=== PATIENT | female | born 1985 | race Caucasian/White ===

== ENCOUNTER 2024-02-09 05:28 | Inpatient (IN) ==
--- NOTE | 2024-02-01 15:13 | Anesthesiology Consultation ---
Date of Service February 01, 2024 Assessment & Plan (1) Encounter for pre-operative examination: - Per solar site assessment specialist on 02/01/24: No known infectious disease contacts, current infectious disease symptoms in past 10 days or COVID positive test result in the past 30 days. Chart Review Chart Review: entry clerk initiated History Surgery Operation Date: 02/09/24 07:30 Proposed Procedures p Repeat Section - Mary Quevedo MD Height/Weight Height: 5 ft 2.25 in Weight: 62.142 kg Allergies Allergy/AdvReac Type Severity Reaction Status Date / Time bisacodyl Allergy Severe Hives Verified 02/01/24 14:18 [From Dulcolax (bisacodyl)] amoxicillin Allergy Intermediate Hives Verified 02/01/24 14:18 latex Allergy Mild Rash Verified 02/01/24 14:18 Medications Home Medications Medication Instructions Recorded Confirmed Last Taken cetirizine 10 mg tablet (Zyrtec) 10 mg PO HS 11/30/20 02/01/24 10/23/22 montelukast 10 mg tablet 10 mg PO HS 11/30/20 02/01/24 08/06/22 (Singulair) prenat.vits,brian,jpx-lqsi-hmpjx 1 tab PO HS 12/04/20 02/01/24 10/23/22 Past Medical History Medical History Anxiety Depression Hx of ectopic 07/2021- hx methotrexate Nausea and vomiting after administration of anesthetic agent pt states with 1st she was sick with nausea/vomiting and shakes for days after procedure Past Family History Family History Other Crohn's disease No family history of adverse response to anesthesia Past Surgical History Surgical History History of arthroscopy right knee x2 History of cervical cerclage History of colonoscopy History of colposcopy x3 History of D&C History of tonsillectomy Previous section Social History Smoking Status: Never smoker Do You Dip or Chew Tobacco: No Hx Alcohol Use: No Hx Substance Use: No substance use type: does not use Testing Laboratory Results 01/28/24 WBC: 9.1 H/H: PLATELETS: 178,000
[2024-02-09] MEDS: LACTATED RINGER'S 1,000 ML IV SCH ×3 (05:47→11:38)
--- OUTSIDE RECORDS SUMMARY | 2024-02-09 05:48 | External Medical Summary | Summary of Care ---
Author Name Unknown Organization [facility] Address [address] [facility] [place] [address] Phone [phone] Care Team Providers Care Dedicated Regional Driver Name Role Phone Unavailable Primary Care Provider Unavailabl e Reason for Visit * Reason Comments Return Visit Encounter Details Date Type Department Care Team (Late st Contact Info) Description 02/05/2024 1:30 PM EDT Office Visit Gynecology/Obstetric s [facility] [address] [place] [id number] Jenny Giraldo CRNP [address] [place] [id number] [place], Non Stress Tests [facility] [address] [place] [id number] High-risk in third trimester*; Asthma affecting in third trimester; History of delivery; Previous delivery affecting ; Multigravida of advanced maternal age in third trimester; Antepartum anemia complicating ; Positive GBS test Allergies Active Allergy Reactions Criticality Noted Date Comments Amoxicillin 2002 hives Doxycycline Hyclate 08/22/2008 Sever vomiting Bisacodyl Chills/rigors,Hives High 08/04/2019 08/03/2019-patient took Dulcolax (4 tablets) for Colonoscopy prep-had allergic reaction (hives, body felt hot, chills) documented as of this encounter (statuses as of 02/05/2024) Medications Medication Sig Dispensed Refills Start Date End Date Status Albuterol Sulfate (VENTOLIN HFA) 108 (90 Base) MCG/ACT AERSIndications:Vir al URI Inhale 2 Puffs by mouth every 4 hours as needed for Cough or Wheezing. 1 Inhaler 08/26/2019 Active Additional Information Patient not taking.Reported on 10/24/2022 Montelukast Sodium 10 MG Oral Tablet (Singulair)Indicati ons:Allergic rhinitis, unspecified seasonality, unspecified trigger Take 1 Tablet by mouth in the morning. 90 Tablet 1 10/06/2023 Active Plus Vitamin/Mineral 27-1 MG Oral Tablet Take 1 Tablet by mouth daily. 12/04/2020 Active documented as of this encounter (statuses as of 02/05/2024) Active Problems Problem Noted Date Diagnosed Date Positive GBS test 01/28/2024 High-risk 12/14/2023 Antepartum anemia complicating 024 Previous delivery affecting 0 12/11/2023 AMA (advanced maternal age) multigravida 35+ 01/2024 Overview: Low risk Qnatal History of delivery 10/08/2023 Last Assessment & Plan: I reviewed the ultrasound with her. The anatomy that was visualized appears unremarkable and the biometry is appropriate for the gestational age. The amniotic fluid volume is subjectively normal. A transvaginal ultrasound was performed to measure the cervical length. The cervical length range from 3.9 cm to 2.4 cm and there was funneling present. The patient states that she had ruptured membranes at 34 weeks and delivered at 34 weeks 1 day gestation. We discussed her options with a cervical length of 2.4 cm including vaginal progesterone and a cervical cerclage. We discussed the risks and benefits of both these procedures. The patient voiced understanding to the above conversation all of her questions were answered to her satisfaction. At this point, the patient would like to proceed with a cerclage. We will attempt to do the cerclage tomorrow morning. Asthma affecting in third trimester Encounter for surveillance of abnormal nevi 04/06 Overview: Mildly atypical nevus (R upper back) Eczema 05/10/2013 Depression 05/10/2013 Generalized anxiety disorder 05/10/2013 Estimated Date of Delivery Comme nts Yes 02/16/2024 Based on last me nstrual period of 05/12/2023 documented as of this encounter (statuses as of 02/05/2024) Resolved Problems Problem Noted Date Diagnosed Date Resolved Date Cervical cerclage suture present 12/11/2023 01/28/2024 Primigravida of advanced mat ernal age in second trimester 10/08/2023 12/11/2023 distress affecting delivery 10/26/2022 12/11/2023 delivery delivered 10/26/2022 12/11/2023 PROM with onset of l abor within 24 hours of rupture 10/24/2022 12/11/2023 Viral URI with cough 11/28/2016 018 Allergic bronchitis 11/28/2016 07/28/19 18 Allergic rhinitis 11/28/2016 10/24/2022 Abdominal pain 09/23/2009 07/28/2017 TOOTH ERUPTION DISTURB 05/07/200409/23 Joint pain, knee 05/01/2004 09/23/2009 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 09/23/2009 documented as of this encounter (statuses as of 02/05/2024) Immunizations Name Administration Dates Next Due DTWP - Dipth/Tet/Whole Cell Pertussis 02/05/1989,09/16/1988,07/28/1988, 988 HIB PRP-T, 4 Dose, PF, IM (H iberix, ActHib) 02/05/1989 Hepatitis B, 0-19 yrs 04/08/1999,10/27/1998,09/04 MMR - Measles/Mumps/Rubella Vaccine 09/23/1998,0 11/07/1988 OPV - Polio Virus Vaccine (Oral) 02/05/1989,07/07,1987 PPD 04/21/2006 TB Ricarda Test 04/08/1999,03/06/1994 documented as of this encounter Social History Tobacco Use Types Packs/Day Years Used Date Smoking Tobacco: Never Smokeless Tobacco: Never Comments:not a lot, maybe 1. 5 yrs Alcohol Use Standard Drinks/Week Comments Not Currently 0 (1 standard drink = 0.6 oz pur e alcohol) Occasional PHQ-2 Answer Date Recorded PHQ-2 Score -1 03/26/2020 Hunger Vital Sign Answer Date Recorded Within the past 12 months, y ou worried that your food would run out before you got the money to buy more. Never true 12/17/19 23 Within the past 12 months, t he food you bought just didn't last and you didn't have money to get more. Never true 12/16/2022 [place] Depression Scale Answer Date Recorded [place] Depression Scale Total 10 11/11/2022 The thought of harming myself has occurred to me . Never 11/11/2022 Utilities Answer Date Recorded Do you have trouble paying y our heating, water, or electric bill? (Adult - for ages 18 years and over) Not on file 12/22/2023 Is your family able to pay t he heat, water, or electric bill? (Household - for ages 0-17 years) Not on file 12/22/2023 Does your family have access to good internet? (Household - for ages 0-17 years) Not on file 12/22/2023 Social Connections Answer Date Recorded How often do you feel lonely or isolated from those around you? (Adult - for ages 18 years and over) Not on file 12/22/2023 Estimated Date of Delivery Comme nts Yes 02/16/2024 Based on last me nstrual period of 05/12/2023 Sex and Gender Information Value Date Recorded Sex Assigned at Female 10/18/2018 8:34 AM EDT Gender Identity Female 10/18/2018 8:34 AM EDT Sexual Orientation Straight 10/18/2018 8: 34 AM EDT Job Start Date Occupation Industry Not on file Not on file Not on file documented as of this encounter Last Filed Vital Signs Vital Sign Reading Time Taken Comments Blood Pressure 116/68 02/05/2024 1:28 PM EDT Pulse - - Temperature - - Respiratory Rate - - Oxygen Saturation - - Inhaled Oxygen Concentration - - Weight 63 kg (139 lb) 02/05/2024 1:28 PM EDT Height 154.9 cm (5' 1") 02/05/2024 1:28 PM EDT Body Mass Index 26.26 02/05/2024 1:28 PM EDT documented in this encounter Functional Status Functional Status Response Date of Assess ment Are you deaf or do you have serious difficulty h earing? No 10/24/2022 Are you blind or do you have serious difficulty seeing, even when wearing glasses? No 10/24/2022 Do you have serious difficul ty walking or climbing stairs? (5 years old or older) No 10/24/2022 Do you have difficulty dress ing or bathing? (5 years old or older) No 10/24/2022 Because of a physical, menta l, or emotional condition, do you have difficulty doing errands alone such as visiting a doctor s office or shopping? (15 years old or older) No 10/25/19 Cognitive Status Response Date of Assessm ent Because of a physical, menta l, or emotional condition, do you have serious difficulty concentrating, remembering, or making decisions? (5 years old or older) No 10/24/2022 documented as of this encounter Progress Notes * Jenny Giraldo CRNP - 02/05/2024 1:27 PM EDT Here for NST only. tachycardia noted on NST yesterday; was later evaluated on L&D, and advised to repeat NSTtoday. ASSESSMENT assessment with Non-stress Test completed on 02/05/2024 at 38.3 weeks gestation for indication of prior tachycardia heart baseline: 130-140 bpm Variability: Moderate Decelerations: absent Accelerations: present Contractions: Present x1 NST start time: 1323 NST stop time: 1345 NST strip reviewed, interpreted, and approved by OB provider, KATIE Mckeon . NST strip stored in clinic storage file documented in this encounter Plan of Treatment Health Maintenance Due Date Last Done Comments Pneumococcal Vaccine: Pediatrics (0 to 5 Years) and At-Risk Patients (6 to 64 Years) (1 of 2 - PCV) 1993 DTaP,Tdap,and Td Vaccines (5 - Tdap) 1998 02/05/1989, 09/16/1988, 07/28/1988, Additional history exists HPV/Co-Test 2017 Depression Monitoring 06/13/2020 06/13/2019 Cervical Cancer Screening 09/18/2020 Pap Smear 09/18/2020 09/18/2017, 08/07, 08/27/2016, Additional history exists Diabetes Screening 06/13/2022 06/13/2019, 0 09/21/2009, 03/19/2007, Additional history exists *SPIROMETRY ONCE FOR ASTHMA-ADULT 10/30/2022 COVID-19 Vaccine ( season) 2023 HPV (Gardasil) Vaccine Aged Out No lo nger eligible based on patient's age to complete this topic MENINGOCOCCAL (MENACTRA/MENVEO) Aged Out No longer eligible based on patient's age to complete this topic documented as of this encounter Medical Devices Not on filedocumented as of this encounter Visit Diagnoses Diagnosis High-risk in third trimester- Primary Asthma affecting in third trimester History of delivery Previous delivery affecting Previous delivery, unspecified as to episode of care or not applicable Multigravida of advanced maternal age in third trimester Antepartum anemia complicating Anemia, antepartum Positive GBS test documented in this encounter Advance Directives * Full Code (Latest Code Status on File) Date Activated Date Inactivated Comments 10/09/2023 9:48 AM 10/09/2023 7:00 PM This order ref lects the patients wishes and were consensually agreed upon. Question Answer Comments Discussion of Advance Directives occurred with: Patient * Full Code Date Activated Date Inactivated Comments 10/24/2022 6:55 AM 10/27/2022 11:22 PM This order reflects the patients wishes and were consensually agreed upon. Question Answer Comments Discussion of Advance Directives occurred with: Patient
--- OUTSIDE RECORDS SUMMARY | 2024-02-09 05:48 | External Medical Summary | Summary of Care ---
Author Name Unknown Organization [facility] Address [address] [facility] [place] [address] Phone [phone] Care Team Providers Care Gear Lapper Name Role Phone Unavailable Primary Care Provider Unavailabl e Reason for Visit * Reason Onset Date Comments Appointment 02/04/2024 Encounter Details Date Type Department Care Team (Late st Contact Info) Description 02/04/2024 Telephone Gynecology/Obstetrics [facility] [address] [place] [id number] Mary Dawkins MD [address] [place] [phone] Appointment Allergies Active Allergy Reactions Criticality Noted Date [...] cough 11/28/2016 018 Allergic bronchitis 11/28/2016 07/28/19 Allergic rhinitis 11/28/2016 10/24/2022 Abdominal pain 09/23/2009 [...] money to buy more. Never true 12/17/19 Within the past 12 months, t he food you bought just didn't last and you didn't have money to get more. Never true 12/16/2022 [place] Depression Scale Answer Date Recorded [place] Depression Scale Total 10 11/11/2022 The thought [...] on file documented as of this encounter Functional Status Functional Status Response [...] No 10/24/2022 documented as of this encounter Miscellaneous Notes * Telephone Encounter - Tamera Bragg OSA - 02/05/2024 7:40 AM EDT LM on pt VM. She is scheduled for today at 130 for a NST. * Telephone Encounter - Mary Dawkins MD - 02/04/2024 6:58 PM EDT Patient is seen in L&D today. Reactive NST after an episode of prolonged acceleration Recommend f/u NST tomorrow on 02/04 at office Please help to arrange NST for her. Thank you documented in this encounter Plan of Treatment Upcoming Encounters Date Type Department Care Team (Late st Contact Info) Description 02/05/2024 1:30 PM EDT Office Visit Gynecology/Obstetrics [facility] [address] [place] [address] Jenny Giraldo CRNP [address] [place] [address] [place] Non Stress Tests [facility] [address] [place] [address] Health Maintenance Due Date Last Done Comments [...] Not on filedocumented as of this encounter Advance Directives * Full Code [...]
--- OUTSIDE RECORDS SUMMARY | 2024-02-09 05:48 | External Medical Summary | Summary of Care ---
Author Name Unknown Organization [facility] Address [address] [facility] [place] [address] Phone [phone] Care Team Providers Care Exchange Administrator Name Role Phone Unavailable Primary Care Provider Unavailabl e Reason for Visit * Reason Comments Return Visit Encounter Details Date Type Department Care Team (Late st Contact Info) Description 02/04/2024 4:30 PM EDT Office Visit Gynecology/Obstetric s [facility] [address] [place] [phone] Suze Maurice PA-C [address] [place] [address] Multigravida of advanced maternal age in third trimester*; Asthma affecting in third trimester; History of delivery; Previous delivery affecting ; High-risk in third trimester; Antepartum anemia complicating Allergies Active Allergy Reactions Criticality Noted Date [...] money to get more. Never true 12/16/2022 [place] Depression Scale Answer Date Recorded [place] Depression Scale Total 10 11/11/2022 The thought [...] Sign Reading Time Taken Comments Blood Pressure 108/64 02/04/2024 4:29 PM EDT Pulse - - Temperature - - Respiratory Rate - - Oxygen Saturation - - Inhaled Oxygen Concentration - - Weight 62.6 kg (138 lb) 02/04/2024 4:29 PM EDT Height - - Body Mass Index 26.07 01/28/2024 9:46 AM EDT documented in this encounter Functional Status [...] (15 years old or older) No 10/25/19 23 Cognitive Status Response Date of Assessm ent Because of a physical, menta l, or emotional condition, do you have serious difficulty concentrating, remembering, or making decisions? (5 years old or older) No 10/24/2022 documented as of this encounter Progress Notes * Suze Maurice PA-C - 02/04/2024 5:16 PM EDT 38w2d Doing well, no complaints. Repeat C/S scheduled 02/09/2024. Denies LOF, VB. Baby is active. Having ctx without regularity. Declines cervical check. Baby tachy w/ doppler 170's. NST in follow up. ASSESSMENT assessment with Non-stress Test completed on 02/04/2024 at 38.2 weeks gestation for indication of concern for tachycardia heart baseline: 150 bpm, change in baseline to 155 bpm around 17:04 Variability: Moderate Decelerations: present, Variable x 1 Accelerations: present Contractions: None NST start time: 16:07 NST stop time: 17:14 NST strip reviewed, interpreted, and approved by OB provider, Suze Maurice PA-C. NST strip stored in clinic storage file weight caller provider Dr. Werner notified. NST reviewed. No BPP available given time of day unfortunately. She was agreeable for patient to present to L&D directly. Patient agreeable to present directly to L&D. L&D notified of patient's arrival. * Jeimy Nicholas LPN - 02/04/2024 4:29 PM EDT Pt is currently 38w2d with an Estimated Date of Delivery: 02/16/24 - documented in this encounter Plan of Treatment Upcoming Encounters Date Type Department Care Team (Late st Contact Info) Description 02/05/2024 1:30 PM EDT Office Visit Gynecology/Obstetrics [facility] [address] [place] [phone] Jenny Giraldo CRNP [address] [place] [address] [place], Non Stress Tests [facility] [address] [place] [id number] Health Maintenance Due Date Last Done Comments [...] as of this encounter Visit Diagnoses Diagnosis Multigravida of advanced maternal age in third trimester- Primary Asthma affecting in third trimester History of delivery Previous delivery affecting Previous delivery, unspecified as to episode of care or not applicable High-risk in third trimester Antepartum anemia complicating Anemia, antepartum documented in this encounter Advance Directives * [...]
[2024-02-09] MEDS: ACETAMINOPHEN 500 MG TAB PO SCH (06:04)
[2024-02-09 06:31] LABS: Hematocrit (blood only) 32.1 % (37.0-47.0); Hemoglobin 10.6 g/dl (12.0-16.0); Mean Corpuscular Volume 90.9 fL (80.0-100.0); Mean Platelet Volume 11.3 fL (9.4-12.4); Platelet Count 154 K/uL (130-400); RDW Coefficient of Variation 13.7 % (11.5-14.5); RDW Standard Deviation 44.9 fL (36.4-46.3); Red Blood Count 3.53 M/uL (4.20-5.40); White Blood Count 7.12 K/ul (4.8-10.8)
[2024-02-09] MEDS ORDERED: DEXAMETHASONE SOD INJ 4 MG/ML VIAL ONE (06:46)
[2024-02-09] MEDS ORDERED: ePHEDrine sulfate 50 MG/5 ML SYR ONE (06:46)
[2024-02-09] MEDS ORDERED: PHENYLEPHRINE 100MCG/ML 10ML SYR IV ONE (06:46)
[2024-02-09] MEDS ORDERED: ONDANSETRON INJ 2 MG/ML 2 ML VIAL ONE (06:46)
[2024-02-09] MEDS ORDERED: MoRPHine SULFATE PF 1 MG/ML 10 ML AMP/VIAL ONE (06:47)
[2024-02-09] MEDS ORDERED: fentaNYL citrate PF 100 MCG/2 ML VIAL ONE (06:47)
[2024-02-09] MEDS ORDERED: KETOROLAC 30 MG/ML VIAL ONE (06:48)
[2024-02-09] MEDS ORDERED: OXYTOCIN 10 UNITS/ML VIAL ONE (06:48)
[2024-02-09] MEDS: CITRIC ACID/SODIUM CITRATE 15 ML UDC PO SCH (07:22)
--- NOTE | 2024-02-09 07:24 | History & Physical Bridge Note ---
Date of Service February 09, 2024 History & Physical Bridge Note I have examined the patient, reviewed the History & Physical and in the interval since the performance of the History & Physical I have noted the following changes of clinical significance: no changes noted
[2024-02-09] MEDS ORDERED: diphenhydrAMINE Capsule 25 MG CAP PO PRN (07:25)
[2024-02-09] MEDS ORDERED: PROMETHAZINE HCL 12.5 MG in SODIUM CHLORIDE 0.9% 50 ML IV PRN (07:25)
[2024-02-09] MEDS ORDERED: HYDROCORTISONE ACETATE 25 MG SUPP PR PRN (07:25)
[2024-02-09] MEDS ORDERED: CALCIUM CARBONATE 500 MG CHEWABLE TAB PO PRN (07:25)
[2024-02-09] MEDS ORDERED: diphenhydrAMINE 50 MG/ML VIAL IV PRN ×2 (07:25→08:01)
[2024-02-09] MEDS ORDERED: BENZOCAINE 20% SPRY 85 APPLN/85 GM CAN EXT PRN (07:25)
[2024-02-09] MEDS ORDERED: SENNA 8.6 MG TAB PO PRN (07:25)
[2024-02-09] MEDS ORDERED: ONDANSETRON INJ 2 MG/ML 2 ML VIAL IV PRN ×2 (07:25→08:01)
[2024-02-09] MEDS ORDERED: MAGNESIUM HYDROXIDE SUSP 30 ML UDC PO PRN (07:25)
[2024-02-09] MEDS ORDERED: HYDROmorphone INJ 0.5 MG/0.5 ML SYR IV PRN ×2 (07:25→08:01)
[2024-02-09] MEDS: ceFAZolin 2000MG 2,000 MG/15 ML SYR IV SCH (07:33)
--- NOTE | 2024-02-09 07:45 | Operative Report ---
Post Operative Report Pre & Post Diagnosis Operation Date: 02/09/24 07:30 <No data on this case meets the specified criteria> I identified the patient and participated in the time-out.: Yes Procedure Operation Date: 02/09/24 07:30 Repeat Low Transverse Ceserean Section Surgeon Mary Quevedo MD Four H Agent Dr Son Quantitative Blood Loss (QBL) 908 ml Findings Consistent with Post-Op Diagnosis Baby was a viable male infant, delivered in cephalic direct occiput posterior position at 08:02 am, Apgars 9/9. Maternal findings: There was silent uterine rupture of about 7-8 cm area where the old incision was, it was covered with peritoneum only, amniotic bag was intact and visible, no bleeding from uterine edges. Right had ectopic in the past which was treated with 2 doses of Methotrexate. It was a small spot on the middle of the right tube, otherwise normal uterus, fallopian tubes and ovaries noted. Specimens Placenta with cord Drains Odonnell catheter drained 100 ml of clear urine Complications none Disposition Accompanied Patient To Recovery: Yes Indications History of prior delivery Description of Procedure Patient was taken to operating room where a spinal anesthesia was given without difficulty. She was placed in dorsal supine position with a leftward tilt. She was prepared and draped in usual sterile fashion. A financial skin incision was made and carried through to the underlying layer of fascia with the Bovie. Fascia was incised in the midline and incision was extended laterally with the help of Zavala scissors. Then the upper aspect of the fascial incision was grasped with 2 Katlin clamps elevated the underlying rectus muscles were dissected off sharply with Zavala scissors. Same thing was done on the lower incision. The rectus muscles were already at the superior part, the rest of them were opened up gently. The peritoneum was already open at a small area close to the muscular defect, the remainder part was extended superiorly and inferiorly with good visualization of the bladder. The bladder blade was inserted. There was silent uterine rupture of about 7-8 cm area where the old incision was, it was covered with peritoneum only, amniotic bag was intact and visible, no bleeding from uterine edges. Vesicouterine peritoneum was identified and sweeped down from incision, bladder flap was created digitally and bladder blade was reinserted. The amniotic bag was incised ay one spot, incision was extended laterally, and clear fluid was obtained. Baby's face was seen indicating, direct occiput posterior position, head was delivered without difficulty, followed by shoulders and body with minimal traction without difficulty. Mouth and nose were suctioned there was dried on the field he was vigorously crying and moving. The cord was clamped times and cut at 1 minute delay and then the was handed off to the pediatric team. Then the placenta was delivered manually as intact and complete. Uterus was externalized and cleared of all clots and debris's. Uterine incision appeared to be normal with no active bleeding from edges, lower segment was thin but still had enough to tissue. It was repaired with 0 Vicryl in a running locked fashion, second umbricating layer was placed with the same suture in running locked fashion. Excellent hemostasis achieved. Cul-de-sac and the pelvis was irrigated with warm normal saline and suctioned. Incision was checked to be hemostatic again. Uterus was returned to the abdomen, parietal peritoneum was reapproximated with 3-0 Vicryl in a running fashion and the muscles were reapproximated with 2-0 Vicryl in a running fashion. All of the fascia and rectus muscles were hemostatic. Rectus fascia was reapproximated with 0 Vicryl starting from both corners meeting in the midline. Subcuticular fat tissue was brought together with 2-0 Vicryl in a running fashion, skin was closed with 4-0 Monocryl in a subcuticular cuticular fashion. The mom and baby tolerated procedure well. Sponge needle instrument count was correct x3. She was given 2 g of cefazolin before surgery. No complications happened, I was and Dr Son was present during whole proced ure. My assistant terminal manager was needed for retraction, hemostasis and aid during delivery of infant. I attest to the content of the Intraoperative Record and any orders documented therein. Any exceptions are noted below.
[2024-02-09] MEDS ORDERED: NALBUPHINE HCL 5 MG in SYRINGE 0 ML IV PRN (08:01)
[2024-02-09] MEDS ORDERED: ePHEDrine sulfate 50 MG/ML AMP IV PRN (08:01)
[2024-02-09] MEDS ORDERED: LACTATED RINGER'S 500 ML IV PRN (08:01)
[2024-02-09] MEDS ORDERED: NO NARCOTICS OR SEDATIVES SCH (08:15)
[2024-02-09] MEDS ORDERED: DC INTRASPINAL MORPHINE SCH (08:15)
[2024-02-09] MEDS ORDERED: MIDAZOLAM HCL 1 MG/ML 2ML VIAL ONE (08:18)
[2024-02-09] MEDS: ERYTHROMYCIN OP OINT 1 GM PKT ONE (09:17)
--- NOTE | 2024-02-09 10:52 | Anesthesiology Progress Note ---
Date of Service February 09, 2024 Anesthesia Post Procedure Vital Signs Vital Signs: Temp Pulse Resp BP Pulse Ox O2 Del Method 02/09/24 10:46 99 H 122/61 02/09/24 10:45 87 100 02/09/24 10:40 89 99 02/09/24 10:36 79 124/60 02/09/24 10:35 80 99 02/09/24 10:30 86 100 02/09/24 10:26 81 121/62 02/09/24 10:25 81 100 02/09/24 10:20 83 100 02/09/24 10:16 81 123/64 02/09/24 10:15 80 99 02/09/24 10:10 77 99 02/09/24 10:06 86 119/70 02/09/24 10:05 77 99 02/09/24 10:00 78 99 02/09/24 09:56 75 124/74 02/09/24 09:55 83 18 100 02/09/24 09:55 84 100 02/09/24 09:50 83 100 02/09/24 09:46 87 128/58 L 02/09/24 09:45 83 18 100 02/09/24 09:45 80 100 02/09/24 09:40 83 100 02/09/24 09:35 92 H 20 98 02/09/24 09:35 92 H 98 02/09/24 09:30 82 99 02/09/24 09:26 85 120/58 L 02/09/24 09:25 85 20 120/58 L 02/09/24 09:25 88 98 02/09/24 09:20 86 98 02/09/24 09:16 90 121/56 L 02/09/24 09:15 85 20 120/58 L 02/09/24 09:15 78 100 02/09/24 09:10 77 18 100 02/09/24 09:10 77 100 02/09/24 09:06 84 123/56 L 02/09/24 09:05 85 20 120/58 L 02/09/24 09:05 84 100 02/09/24 09:00 71 99 02/09/24 08:55 36.7 C 18 02/09/24 08:55 73 132/63 98 02/09/24 07:03 67 105/63 02/09/24 05:51 36.9 C 18 Room Air 02/09/24 05:40 36.9 C 79 18 132/78 Pain Intensity Bilateral Abdomen: Pain Intensity: 2 Transfer of Care Handoff Completed per policy Notes Mental Status: alert / awake / arousable and participated in evaluation Patient Amnestic to Procedure: No Nausea / Vomiting: adequately controlled Pain: adequately controlled Airway Patency, RR, SpO2: stable & adequate BP & HR: stable & adequate Hydration State: stable & adequate Neuraxial Anesthesia: was administered and sensory block is resolving Anesthetic Complications: no major complications apparent and Pt Satisfied with anesthetic care
[2024-02-09] MEDS: OXYTOCIN 20 UNITS/LR 1,002 ML IV SCH (11:01)
[2024-02-09] MEDS: IBUPROFEN 600 MG TAB PO SCH (11:38)
[2024-02-09] MEDS: ACETAMINOPHEN 325 MG TAB PO SCH (11:38)
[2024-02-09] MEDS: OXYTOCIN 30 UNITS/LR 1,003 ML IV SCH (11:38)
[2024-02-09] MEDS: SIMETHICONE 80 MG CHEW PO SCH (11:39)
[2024-02-09] MEDS: PRENATAL VITAMIN 1 TAB PO SCH (11:39)
[2024-02-09] MEDS: DOCUSATE SODIUM 100 MG CAP PO SCH (11:39)
[2024-02-09] MEDS: FERROUS SULFATE 325 MG TAB PO SCH (11:39)
[2024-02-09] MEDS: PROMETHAZINE HCL 6.25 MG in SODIUM CHLORIDE 0.9% 50 ML IV PRN (13:28)
[2024-02-09] MEDS: KETOROLAC 30 MG/ML VIAL IV PRN (14:24)
[2024-02-09] MEDS: MEASLES, MUMPS & RUBELLA VIRUS VACCINE (MMR) 0.5ML VIAL SQ ONE (19:25)
[2024-02-09] MEDS: DIPHTHER/TETAN/PERTUS Vaccine (Tdap, Adol/Adult) 0.5mL IM ONE (19:25)
[2024-02-09] MEDS: HYDROCORTISONE 2.5% CR 30 GM TUBE EXT PRN (20:13)
[2024-02-10] MEDS: MoRPHine SULFATE PF 1 MG/ML 10 ML AMP/VIAL INT SPINAL ONE (03:04)
[2024-02-10] MEDS: SODIUM CHLORIDE 0.9% 1,000 ML IV SCH (03:04)
[2024-02-10] MEDS: oxyCODONE HCL IR 5 MG TAB (IMMEDIATE RELEASE) PO PRN (05:04)
[2024-02-10] MEDS ORDERED: PROMETHAZINE 12.5 MG/50.5 ML BAG IV PRN (06:51)
[2024-02-10 09:11] LABS: Basophils # (auto) 0.03 K/uL (0.00-0.20); Basophils % (auto) 0.3 %; Eosinophils # (auto) 0.03 K/uL (0.00-0.50); Eosinophils % (auto) 0.3 %; Hematocrit (blood only) 30.6 % (37.0-47.0); Immature Granulocytes # (auto) 0.21 K/uL (0.01-0.20); Lymphocytes # (auto) 1.69 K/uL (1.20-3.40); Lymphocytes % (auto) 16.2 %; Mean Corpuscular Hemoglobin 30.2 pg (25.0-34.0); Mean Corpuscular Hgb Conc 32.7 g/dL (32.0-36.0); Mean Corpuscular Volume 92.4 fL (80.0-100.0); Mean Platelet Volume 11.7 fL (9.4-12.4); Monocytes # (auto) 0.79 K/uL (0.11-0.59); Monocytes % (auto) 7.6 %; Neutrophils % (auto) 73.6 %; Platelet Count 174 K/uL (130-400); RDW Coefficient of Variation 13.9 % (11.5-14.5); RDW Standard Deviation 47.1 fL (36.4-46.3); Red Blood Count 3.31 M/uL (4.20-5.40); White Blood Count 10.45 K/ul (4.8-10.8)
--- NOTE | 2024-02-10 11:14 | Obstetrical Progress Note ---
Date of Service February 10, 2024 Subjective Ambulation: ambulating normally Voiding: no voiding problems Passing Gas:: Yes Diet Tolerance:: regular diet Lochia:: Small Feeding Type:: breast feeding Current Pain Level(1-10): 0 doing well Physical Exam Constitutional WD/WN, vitals as above Gastrointestinal (Abdomen) Inspection/Auscultation: abdomen normal to inspection and + abdominal surgical incision Percussion/Palpation: abdomen soft Musculoskeletal Extremities: extremities normal to inspection Skin no rashes, warm and dry Neurologic patellar DTR's 2+ bilat, sensation intact Psychiatric A+Ox3, euthymic affect Results & Data Vital Signs (Past 12 Hours) Vital Signs Temp Pulse Resp BP Pulse Ox O2 Del Method 02/10/24 08:15 36.8 C 75 18 104/66 98 Room Air 02/10/24 04:00 36.8 C 78 16 98/57 L 99 Room Air 02/10/24 02:00 16 100 02/10/24 01:00 16 99 02/10/24 00:30 36.7 C 75 16 100/62 100 Room Air 02/10/24 00:00 16 100 Laboratory Results Laboratory Results - last 72 hr 02/09/24 02/10/24 06:14 08:32 WBC 7.12 10.45 RBC 3.53 L 3.31 L Hgb 10.6 L 10.0 L Hct 32.1 L 30.6 L MCV 90.9 92.4 MCH 30.0 30.2 MCHC 33.0 32.7 RDW Std Deviation 44.9 47.1 H RDW Coeff of Juwan 13.7 13.9 Plt Count 154 174 MPV 11.3 11.7 Immature Gran % (Auto) 2.0 Neut % (Auto) 73.6 Lymph % (Auto) 16.2 Alcorn % (Auto) 7.6 Eos % (Auto) 0.3 Baso % (Auto) 0.3 Neut # (Auto) 7.70 H Lymph # (Auto) 1.69 Alcorn # (Auto) 0.79 H Eos # (Auto) 0.03 Baso # (Auto) 0.03 Immature Gran # (Auto) 0.21 H Treponema pallidum Ab Negative Blood Type A Positive Antibody Screen NEGATIVE
[2024-02-10] MEDS ORDERED: bisacodyL 5 MG TABEC PO SCH (20:00)
[2024-02-11 06:24] LABS: Hematocrit (blood only) 29.6 % (37.0-47.0); Hemoglobin 9.7 g/dl (12.0-16.0)
[2024-02-11] MEDS ORDERED: bisacodyL 10 MG SUPP PR PRN (07:25)
[2024-02-11] MEDS: IBUPROFEN 600 MG TAB PO PRN (07:39)
[2024-02-11] MEDS: ACETAMINOPHEN 325 MG TAB PO PRN (07:40)
--- NOTE | 2024-02-11 08:48 | Obstetrical Progress Note ---
Date of Service February 11, 2024 Assessment & Plan Admission and Anticipated Discharge Date Admission Date: February 09, 2024 OB Progress Note abdomen soft nd non tender bandage removed incision is clean and dry no calf tenderness ambulating well vaginal bleeding scant hgb 9.7 Results & Data Vital Signs (Past 12 Hours) Vital Signs Temp Pulse Resp BP Pulse Ox O2 Del Method 02/11/24 07:10 36.9 C 73 14 105/64 97 Room Air 02/10/24 23:25 36.8 C 83 18 119/73 97 Room Air
--- NOTE | 2024-02-11 09:04 | Discharge Summary ---
Date of Service February 11, 2024 Admission HPI Per Admitting Provider Patient has a history of right-sided ectopic . Patient has a history of premature delivery. Patient has a history of incompetent cervix. Patient has had an cervical cerclage in place during this had it removed at about 38 weeks gestation. And was brought in for repeat low segment section. Having had her first delivery via section due to distress. Discharge Data Consultations 02/09/24 00:39 Consult Anesthesiology Stat Procedures Performed Operation Date: 02/09/24 07:30 Actual Procedures p Section in LD @ [address] [facility] [place] - Mary Quevedo MD Hospital Course (1) delivery delivered: Plan Patient was admitted for repeat low segment section. Her course has been complicated by incompetent cervix. Cervical cerclage has been placed. Cerclage have been removed at about 38 weeks gestation. She was admitted for repeat low segment section. Her preoperative hemoglobin was 10.0. Postoperatively hemoglobin fell to 9.7. She remained afebrile throughout her postoperative course. Bowel sounds returned within 24 hours. At the time of discharge she was ambulating well eating well pain was controlled with a combination of nonnarcotic medications and Percocet. I discussed the patient's anemia with her. Recommended daily vitamins. With supplemental iron at least twice a week. At the time of discharge patient requested discharge.
== END 2024-02-11 13:30 | disposition home or self-care (01) | DRG 788 ==
LOC: 4S1 05:28 → EDSTATUS 07:30 → 4E2 11:40